=== PATIENT | female | born 1955 | race Caucasian/White ===

== ENCOUNTER → 2023-08-11 09:22 | Outpatient (CLI) | payer MEDICARE, OTHER, SELFPAY ==
--- NOTE | ~2023-08-11 | XR_ITS ---
Clinical Indication: Cough PA and lateral views of the chest: Comparison: 11/18/2012 Findings: The lungs are clear, without evidence of focal consolidation or pleural effusion. Cardiome diastinal silhouette is within normal limits. Bones and soft tissues are unremarkable. Impression: Normal chest. Reviewed, dictated and finalized at [facility]. 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
== END ==
PROVIDERS: PCP Clinical Nurse Specialist; Visit Provider Clinical Nurse Specialist
DX: R05.9 Cough, unspecified (principal); Z85.820 Personal history of malignant melanoma of skin
CPT/HCPCS: 71046

== ENCOUNTER 2023-11-04 06:51 | Day surgery (SDC) | payer MEDICARE, OTHER, SELFPAY ==
[2023-10-19 09:16] VITALS: BMI 24.6
[2023-10-19 10:41] VITALS: BMI 23.1
[2023-11-04 08:26] VITALS: BP 122/83; PULSE 68; RESP 16; TEMP 36.6; O2SAT 98; BMI 23.4
[2023-11-04] MEDS: LACTATED RINGERS 1,000 ML 150 ML IV CONT (08:40)
--- NOTE | 2023-11-04 08:58 | PM.HPGS ---
History of Present Illness History of Present Illness Consent: Risks, benefits, and alternatives have been discussed and questions answered. Patient agrees to proceed with procedure. Chief complaint: Screening neoplasm of colon Narrative: Jennifer Mistry is a 68 year old female dense for screening colonoscopy. Patient's current weight appetite and bowel movements are normal. Patient denies abdominal pain. She has had no bleeding. Previous colonoscopy 10 years ago was unremarkable. Family history is significant her son was recently identified as having colon polyps. Review of Systems Review of Systems: Review of systems is noncontributory. 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), right eye Macular hole, right eye repaired Melanoma Surgical History Surgical History H/O hemorrhoidectomy H/O shoulder replacement right H/O tubal ligation History of bunionectomy Family History Family History Father Hypertension Mother Patient's mother is in good health Father Diabetes mellitus Mother Heart disease Hypertension Sibling Breast cancer Social History Social History Social History: Caffeine- rarely Smoking status: Never smoker Second hand tobacco smoke exposure: No Smoking end date: 08/03/74 Alcohol intake: current Drinks per week: 2 Alcohol use details: wine Substance use: never Substance use type: does not use Do You Feel Safe in your Home?: Yes Lack of Transportation: No Lack of Food: Never True Current Housing: I Have Housing Concerned About Future Housing: No Difficulty Paying Gas/Electric Bills: No Difficulty Paying for Meds: No Currently Unemployed: No Education: Trade/Vocational Certificate Difficulty w/ Childcare or Family Care: No Living arrangements: with family Spiritual care concerns: No Meds Home Medications and Allergies Home Medications Medication Instructions Recorded Confirmed Type fluticasone propionate 50 1 spray intranasal Q12H #48 mL 09/02/23 11/04/23 Rx mcg/actuation nasal spray,suspension (Flonase Allergy Relief) Allergies Allergy/AdvReac Type Severity Reaction Status Date / Time amoxicillin Allergy Intermediate Unknown Verified 11/04/23 08:17 Penicillins Allergy Intermediate Rash Verified 11/04/23 08:17 Vital Signs Vital Signs - 24 hr 11/04/23 08:26 Temperature 97.8 F Pulse Rate 68 Respiratory Rate 16 Blood Pressure 122/83 Pulse Oximetry 98 Oxygen Delivery Room Air Exam Narrative: Physical exam reveals patient to be alert he exam is unremarkable. Patient is anicteric. Lungs are clear to auscultation and percussion. Is without murmur or extra sounds. Abdomen bowel sounds are present soft nontender with no organomegaly. Digital external rectal exam is normal. Assessment and Plan Assessment and plan (1) Screening for colon cancer: Code(s): Z12.11 - Encounter for screening for malignant neoplasm of colon Status: Acute Assessment and Plan: Patient presents for screening colonoscopy. Further recommendations may be given after endoscopy.
--- NOTE | 2023-11-04 09:30 | WPDANESEPPF ---
Anes - Initial Pre Proc Eval Procedure: Operation Date: 11/04/23 09:30 Proposed Procedures p Screening Colonoscopy - Joshua Davidson MD Date/Time: 11/04/23 09:30 Surgeon: Joshua Davidson MD Pre Op Diagnosis: Screening neoplasm of colon Patient Data Age: 68 Gender: F Height: 1.65 m Weight: 64 kg Last Vital Signs Temp 36.6 C 11/04/23 08:26 Pulse 68 11/04/23 08:26 Resp 16 11/04/23 08:26 BP 122/83 11/04/23 08:26 Pulse Ox 98 11/04/23 08:26 O2 Del Method Room Air 11/04/23 08:26 Allergies Allergy/AdvReac Type Severity Reaction Status Date / Time amoxicillin Allergy Intermediate Unknown Verified 11/04/23 08:17 Penicillins Allergy Intermediate Rash Verified 11/04/23 08:17 Home Medications Medication Instructions Recorded Confirmed Type fluticasone propionate 50 1 spray intranasal Q12H #48 mL 09/02/23 11/04/23 Rx mcg/actuation nasal spray,suspension (Flonase Allergy Relief) Patient hx anesthesia problems: none Family hx anesthesia problems: none Results Review: All pre-operative results and documents have been reviewed as part of the pre-operative evaluation. 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), right eye Macular hole, right eye repaired Melanoma Surgical History Surgical History H/O hemorrhoidectomy H/O shoulder replacement right H/O tubal ligation History of bunionectomy Family History Family History Father Hypertension Mother Patient's mother is in good health Father Diabetes mellitus Mother Heart disease Hypertension Sibling Breast cancer Social History Social History Social History: Caffeine- rarely Smoking status: Never smoker Second hand tobacco smoke exposure: No Smoking end date: 08/03/74 Alcohol intake: current Drinks per week: 2 Alcohol use details: wine Substance use: never Substance use type: does not use Do You Feel Safe in your Home?: Yes Lack of Transportation: No Lack of Food: Never True Current Housing: I Have Housing Concerned About Future Housing: No Difficulty Paying Gas/Electric Bills: No Difficulty Paying for Meds: No Currently Unemployed: No Education: Trade/Vocational Certificate Difficulty w/ Childcare or Family Care: No Living arrangements: with family Spiritual care concerns: No Anes - Eval Final PreProcedure Day of Procedure 11/04/23 09:30 Patient weight: normal Heart: regular rate and rhythm Lungs: clear to auscultation Airway: Mallampati scale class II Neurological: alert and oriented Last oral intake: >/= 8 hours ASA classification: II Emergent: no Anesthetic plan: proceed Anesthesia type and monitoring: general GIVS and standard monitoring Results Review: All pre-operative results and documents have been reviewed as part of the pre-operative evaluation. Informed Consent: The patient's anesthetic plan and its attendant risks and benefits were discussed with the patient/family/POA. Questions were solicited and answers provided to the satisfaction of the patient/family/POA.
[2023-11-04 09:57] VITALS: BP 116/74; PULSE 69; RESP 20; O2SAT 98
[2023-11-04 10:07] VITALS: BP 114/66; PULSE 68; RESP 18; O2SAT 100
[2023-11-04 10:17] VITALS: BP 146/66; PULSE 57; RESP 16; O2SAT 100
--- NOTE | 2023-11-04 10:38 | WPDANESPN ---
Anes - Prog Note Post-Op Date/Time: 11/04/23 10:38 Cardiovascular status: normal Respiratory status: normal Airway patency: baseline Mental status: baseline Post-Op hydration status: normal Vital Signs: Last Vital Signs Temp 36.6 C 11/04/23 08:26 Pulse 57 L 11/04/23 10:17 Resp 16 11/04/23 10:17 BP 146/66 H 11/04/23 10:17 Pulse Ox 100 11/04/23 10:17 O2 Del Method Room Air 11/04/23 10:17 Pain Score (VAS): 0 I/O: Intake & Output 11/03/23 11/04/23 11/04/23 23:59 07:59 15:59 Intake Total 500 Balance 500 Patient Feedback: Patient satisfied with anesthetic care.
== END 2023-11-04 10:59 | disposition home or self-care (01) ==
PROVIDERS: PCP Internal Medicine; Visit Provider Internal Medicine Gastroenterology
PROC: 0DJD8ZZ Inspection of Lower Intestinal Tract, Via Natural or Artificial Opening Endoscopic (ICD-10-PCS; CPT 45378; principal; 2023-11-04 09:30)
DX: Z12.11 Encounter for screening for malignant neoplasm of colon (principal)
CPT/HCPCS: G0121

== ENCOUNTER 2024-06-28 08:03 | Outpatient (CLI) | payer MEDICARE, OTHER, SELFPAY ==
--- NOTE | ~2024-06-28 | DEXA_ITS ---
Bone Density Report Name: NATI SALDIVAR Age: 68 Sex: Female Ethnicity: White Date of : 1955 Indication: postmenopausal; screening for osteoporosis; height loss; history of glucocorticoids; cancer; Referring Provider: LAI ECHOLS Study: Bone densitometry was performed. Exam Date: June 28, 2024 Accession number: [id number] Bone Density: Region BMD T-score Z-score Classification AP Spine(L1-L4) 0.992 -0.5 1.7 Normal Femoral Neck (Left) 0.671 -1.6 0.2 Osteopenia Total Hip (Left) 0.876 -0.5 1.0 Normal Femoral Neck (Right) 0.690 -1.4 0.4 Osteopenia Total Hip (Right) 0.878 -0.5 1.0 Normal Total Hip Mean 0.877 -0.5 1.0 Normal World Health Organization criteria for BMD impression classify patients as: Normal (T-score at or above -1.0), Osteopenia (T-score between -1.0 and -2.5), or Osteoporosis (T-score at or below -2.5). 10-year Fracture Risk(1): Major Osteoporotic Fracture 17% Hip Fracture 5.1% Reported Risk Factors: [place] (), Neck BMD=0.671, BMI=24.7, smoking, glucocorticoids (1) FRAX(R) Version 3.08. Fracture probability calculated for an untreated patient. Fracture probability may be lower if the patient has received treatment. Clinical Information Provided by Patient: Smokes Has taken Glucocorticoids Has used the following medications: Vitamin D, Calcium, Multivi Has the following medical conditions: Cancer Patient maximum height was 65 Menopause Age: 48 Drinks caffeinated beverages Onset of menses at age 10 Number of children 2 Impression: The patient has low bone mass, based on the Left Femoral Neck T-score. The patient has an estimated ten-year risk of hip fracture of 5.1% and an estimated ten-year risk of major fracture of 17%, based on the WHO FRAX algorithm. The patient has risk factors, including: smoking, history of glucocorticoid therapy. Discussion: BONE DENSITY IS LOW AT ONE OR MORE SKELETAL SITES. THE PATIENT'S BMD AND CLINICAL RISK FACTORS CONTRIBUTE TO THIS PATIENT'S INCREASED RISK OF FRACTURE. This patient's lowest T-score is low at one or more skeletal sites. It meets the World Health Organization's (WHO) criteria for ?low bone mass? (T-score between -1.0 and -2.5). The patient's 10-year risk of hip fracture as calculated by FRAX exceeds the threshold where pharmacological therapy is recommended by the National Osteoporosis Foundation (NOF). However, all treatment decisions require clinical judgment and consideration of individual patient factors, including patient preferences, comorbidities, previous drug use, risk factors not captured in the FRAX model (e.g., frailty, falls, vitamin D deficiency, increased bone turnover, interval significant decline in bone density) and possible under or overestimation of fracture risk by FRAX. The patient should follow a healthful lifestyle (good nutrition with adequate calcium and vitamin D, and appropriate weight-bearing exercise). Follow-Up: Consider a repeat BMD and Vertebral Fracture Assessment (VFA) exam in 2 years or sooner if medically necessary, to reassess this patient's status. Reported by: JOAQUIN on 06/28/2024 8:38:00 AM. Reviewed, dictated and finalized at location [facility]
== END 2024-06-28 08:04 | disposition home or self-care (01) ==
LOC: ANHIMG 08:04
PROVIDERS: Visit Provider Clinical Nurse Specialist
DX: Z78.0 Asymptomatic menopausal state (principal); M85.852 Other specified disorders of bone density and structure, left thigh; M85.851 Other specified disorders of bone density and structure, right thigh
CPT/HCPCS: 77080

== ENCOUNTER 2025-05-16 13:48 | Outpatient (CLI) | payer MEDICARE, SELFPAY ==
--- NOTE | 2025-05-16 14:49 | ECG_ITS ---
Test Date: 2025-05-16 15:01:20 Measurements Intervals [place] Rate: 60 P: 24 NM: 136 QRS: 13 QRSD: 94 T: 26 QT: 394 QTc: 396 Interpretive Statements SINUS RHYTHM DELAYED PRECORDIAL R/S TRANSITION CONSIDER INFERIOR INFARCT, AGE INDETERMINATE BASELINE ARTIFACT- I, II, III, AVR, AVL, AVF ABNORMAL ECG No previous ECG available for comparison Electronically Signed On 05-16-2025 16:54:00 CDT by Aric Pedersen D.O.
[2025-05-16 15:27] LABS: INR 1.0; Prothrombin Time 12.8 Seconds (11.1-14.7)
[2025-05-16 15:28] LABS: Partial Thromboplastin Time 26.2 Seconds (22.3-36.8)
[2025-05-16 15:37] LABS: Hematocrit 41.7 % (37.0-47.0); Hemoglobin 13.7 g/dL (12.0-15.0); Immature Granulocyte Percent A 0.3 % (0-0.5); Lymphocytes Absolute Auto 2.15 K/mm3 (0.9-3.2); Mean Corpuscular HGB Conc 32.9 g/dl (32-36); Mean Corpuscular Hemoglobin 28.8 pg (26-34); Mean Corpuscular Volume 87.8 fl (80-100); Nucleated Red Blood Cells Absolute Auto 0.000 K/mm3 (0.0-0.012); Nucleated Red Blood Cells Perc 0.0 % (0.0-0.2); Platelet Count Result 314 k/mm3 (150-375); Red Blood Count 4.75 M/mm3 (4.2-5.4); White Blood Count 7.2 K/mm3 (4.5-10.0)
[2025-05-16 15:40] LABS: Alanine Aminotransferase 22 U/L (6-35); Albumin Level 4.5 g/dL (3.5-5.1); Alkaline Phosphatase 67 U/L (38-126); Anion Gap 7 mmol/L (4-12); Aspartate Amino Transferase 33 U/L (14-36); Bilirubin,Total 0.4 mg/dL (0.2-1.3); Blood Urea Nitrogen 21 mg/dL (7-17); Calcium 9.9 mg/dL (8.4-10.2); Carbon Dioxide 28 mmol/L (22-30); Chloride 102 mmol/L (98-107); Estimated Glomerular Filt Rate > 60; Glucose 100 mg/dL (65-110); Potassium 4.2 mmol/L (3.4-5.0); Sodium 137 mmol/L (137-145); Total Protein 7.4 g/dL (6.3-8.2)
--- OUTSIDE RECORDS SUMMARY | 2025-05-16 15:50 | XMS_ITS | Clinical Summary ---
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
--- OUTSIDE RECORDS SUMMARY | 2025-05-16 15:51 | XMS_ITS | Encounter Summary ---
Author Organization [facility] Address [address] [place] [address] Care Team Providers Care Adult Neuropsychologist Name Role Phone Hank Loftonian Primary Care Provider Encounter Details Date Type Department Care Team (Late st Contact Info) Description 05/16/2025 Telephone [facility] Cardiology [address] [place] [address] Stormy Maddox MA Social History Tobacco Use Types Packs/Day Years Used Date Smoking Tobacco: Former Smokeless Tobacco: Never Alcohol Use Standard Drinks/Week Comments Not Currently 0 (1 standard drink = 0.6 oz pur e alcohol) AUDIT-C Answer Date Recorded Q1: How often do you have a drink containing alc ohol? 2-4 times a month 12/24/2022 Q2: How many drinks containi ng alcohol do you have on a typical day when you are drinking? 1 or 2 12/24/2022 Q3: How often do you have si x or more drinks on one occasion? Never 12/24/2022 Personal Safety Answer Date Recorded Have you ever been in or are you currently in a harmful physical or emotional relationship or is someone making you feel afraid or unsafe? 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 I called her back and told her it was not me that called her. documented in this encounter Plan of Treatment Not on file documented as of this encounter Visit Diagnoses Not on filedocumented in this encounter Care Teams Adult Neuropsychologist Relationship Specialty Start Date End Date Hank Lofton DO PCP - General 03/04/18 documented as of this encounter
--- OUTSIDE RECORDS SUMMARY | 2025-05-16 15:51 | XMS_ITS | Patient Health Record ---
Author Organization [facility] Address [address] [place], [place] [id number] Care Team Providers Care Acute Care Certified Nursing Assistant Name Role Phone BHAVANA Stein Unavailable [phone] Hank Lofton Unavailable Unavailable Reason For Referral No Information Medications Medication SIG (Take, Route, Frequency, Duration) Notes Start Date End Date Status diclofenac sodium 75 MG Delayed Release Oral Tablet ORAL diclofenac sodium 75 MG Delayed Release Oral TabletOriginal Medicationdiclofenac sodium 75 MG Delayed Release Oral Tablet *Reorder from [address] [employer] for eRx and Interaction Alerts* 03/26/2016 Active Medrol Dosepak ORAL Medrol DosepakOr iginal MedicationMedrol Dosepak *Reorder from [facility] for eRx and Interaction Alerts* 11/17/2016 Active Plan Of Treatment No Information Insurance Providers Payer Name Payer Address Payer Phone Subscriber Number Group Number Insured Name Patient Relationship to Insured Coverage Start Date Coverage End Date Medicare Part B [facility] [place] [address] [facility] [place] [id number] NATI SALDIVAR Self - patient is the insured [facility] [employer] [address] [place] [phone] [id number] NATI SALDIVAR Self - patient is the insured
--- OUTSIDE RECORDS SUMMARY | 2025-05-16 15:51 | XMS_ITS | Clinical Summary ---
Author Organization [facility] Address [address] [place] [address] Care Team Providers Care Phone Technician Name Role Phone LaynedineshHank tai Lenny Primary Care Provider Allergies Active Allergy Reactions Criticality Noted Date Comments Penicillins Rash Medium 08/28/2011 Medications MAGNESIUM ORAL Take 1 tablet by mouth nightly Active ascorbic acid/collagen hydr (COLLAGEN SKIN RENEWAL ORAL) Take 1 tablet by mouth nightly Active CALCIUM ORAL Take 1 tablet by mouth every morning Active acetaminophen 500 mg capsuleIndicati ons:Pain Take 2 capsules (1,000 mg total) by mouth every 6 (six) hours 120 tablet 3 Active clindamycin (CLEOCIN) 300 mg capsuleIndicati ons:Prophylaxis , Surgical TAKE TWO CAPSULES ONE HOUR PRIOR TO DENTAL PROCEDURE 6 capsule 1 3 Active Active Problems Problem Noted Date Diagnosed Date Rotator cuff tear, right 01/15/2023 Complete tear of right rotator cuff 11/06/2022 Overview (11/06/2022): Added automatically from request for surgery [id number] Epistaxis 08/28/2011 Encounters Date Type Department Care Team Description 05/16/2025 Telephone [facility] Cardiology [address] [place] [address] Stormy Maddox MA from Last 3 Months Surgical History Surgery Date Site/Laterality Comments FLUORO GUIDED INJECTION SHOULDER RIGHT 08/25/2022 [facility] Medical History Medical History Date Comments Peptic ulceration Cancer (HCC) Family History Medical History Relation Name Comments Anesthesia problems Neg Hx Social History Tobacco Use Types Packs/Day Years [...] on file Legal Sex Female 3:44 AM STRIKER OFF Gender Identity Female 04/27/2024 11:14 AM CDT Sexual Orientation Not on file Obstetrics History Last Filed Vital Signs Vital Sign Reading Time Taken Comments Blood Pressure 127/69 01/16/2023 8:14 AM CDT Pulse 81 01/16/2023 8:14 AM CDT Temperature 36.8 C (98.2 F) 01/16/2023 3:54 AM CDT Respiratory Rate 16 01/16/2023 8:14 AM CDT Oxygen Saturation 96% 01/16/2023 8:14 AM CDT Inhaled Oxygen Concentration - - Weight 65.8 kg (145 lb) 05/17/2024 4:07 PM CDT Height 165.1 cm (5' 5) 05/17/2024 4:07 PM CDT Body Mass Index 24.13 05/17/2024 4:07 PM CDT Plan of Treatment Health Maintenance Due Date Last Done Comments Colon Cancer Screening-Colonoscopy 1955 Depression Screening 1955 Hepatitis C Screening 1955 Osteoporosis Screening-Bone Density Scan 1955 DTaP/Tdap/Td Vaccine (1 - Tdap) 1964 Hepatitis B Screening 1971 Pneumococcal vaccine 65+ (1 of 1 - PCV) 2003 Zoster Vaccine (1 of 2) 2003 Well Visit 65+ 2018 Fall Risk Assessment 01/17/2024 01/16/2023 Covid-19 Vaccine (2024-2 6 season) 2025 10/12/2020, 09/21/2020 Influenza Vaccine (#1) 2025 05/29/2021 Breast Cancer Screening-Mammogram 09/28/2025 09/28/2024, 09/22/2023, 10/08/2022, Additional history exists Medical Devices Implanted Type Area Balance Recesser Device Identifier Shelf Expiration Date Model / Serial / Lot [employer] Tornier Aequalis Perform 25mm Lateralize Augment Reverse Shoulder [id number] - [id number] - [id number] Implanted:Qty: 1 on 01/15/2023 by Justino Bearden MD at [facility] Right: Shoulder [employer] 11/28/2027 [id number] / [id number] / [employer] Tornier Aequalis Perform 15mm Press Fit Long Post Shoulder [id number] - [id number] - [id number] Implanted:Qty: 1 on 01/15/2023 by Justino Bearden MD at [facility] Right: Shoulder [employer] [id number] / [id number] / [employer] Aequalis Perform Reversed 5mm 14mm Peripheral Glenoid Screw [id number] - [id number] Implanted:Qty: 1 on 01/15/2023 by Justino Bearden MD at [facility] Right: Shoulder [employer] [id number] / / [employer] Aequalis Perform Reversed 5mm 18mm Peripheral Glenoid Screw [id number] - [id number] Implanted:Qty: 1 on 01/15/2023 by Justino Bearden MD at [facility] Right: Shoulder [employer] [id number] / / [employer] Aequalis Perform Reversed 5mm 42mm Peripheral Glenoid Screw [id number] - [id number] Implanted:Qty: 1 on 01/15/2023 by Justino Bearden MD at [facility] Right: Shoulder [employer] [id number] / / [employer] Aequalis Perform Reversed 5mm 30mm Peripheral Glenoid Screw [id number] - [id number] Implanted:Qty: 1 on 01/15/2023 by Justino Bearden MD at [facility] Right: Shoulder [employer] [id number] / / [employer] Tornier Aequalis Perform 36mm Reverse Shoulder Standard Sphere [id number] - [id number] - [id number] Implanted:Qty: 1 on 01/15/2023 by Justino Bearden MD at [facility] Right: Shoulder [employer] 11/01/2027 [id number] / [id number] / [employer] Insert Perform 10 Deg Ret [id number] - [id number] - [id number] Implanted:Qty: 1 on 01/15/2023 by Justino Bearden MD at [facility] Right: Shoulder [employer] [id number] 03/14/2025 [id number] / [id number] / [employer] Stem Perform Sz 2 Plus Humeral Long [id number] - [id number] - [id number] Implanted:Qty: 1 on 01/15/2023 by Justino Bearden MD at [facility] Right: Shoulder [employer] 10/30/2027 [id number] / [id number] / Procedures Procedure Name Priority Date/Time Associated Diagnosis Comments SCREENING MAMMOGRAM BILATERAL W GOPI Schedule Routine, Read Routine (OP Routine) 09/28/2024 1:41 PM STRIKER OFF Screening mammogram, encounter for from Last 3 Months or Most Recently Relevant to Health Maintenance Results * Screening Mammogram Bilateral W Gopi (09/28/2024 1:41 PM STRIKER OFF) Anatomical Region Laterality Modality Breast Bilateral Mammography Narrative 09/29/2024 11:54 AM STRIKER OFF Mammogram Technique: Bilateral Digital Breast Tomosynthesis, Bilateral C-view 2D Screening mammogram. Views obtained: bilateral craniocaudal and bilateral mediolateral oblique. Computer Aided Detection was performed. Mammogram Findings: The present examination has been compared to prior imaging studies performed at [facility] on 07/10/2021, 10/08/2022 and 09/22/2023. The breasts are almost entirely fatty. There is no suspicious abnormality in either breast. Impression: There is no mammographic evidence of malignancy. Annual screening mammography is recommended. OVERALL FINAL ASSESSMENT: BI-RADS CATEGORY 1: Negative. Procedure Note Diamond Samson MD - 09/29/2024 Mammogram Technique: Bilateral Digital Breast Tomosynthesis, Bilateral C-view 2D Screening mammogram. Views obtained: bilateral craniocaudal and bilateral mediolateral oblique. Computer Aided Detection was performed. Mammogram Findings: The present examination has been compared to prior imaging studies performed at [facility] on 07/10/2021, 10/08/2022 and 09/22/2023. The breasts are almost entirely fatty. There is no suspicious abnormality in either breast. Impression: There is no mammographic evidence of malignancy. Annual screening mammography is recommended. OVERALL FINAL ASSESSMENT: BI-RADS CATEGORY 1: Negative. us Self Screening Mammogram IMG MAMMO PROCEDURES Fi nal Result from Last 3 Months or Most Recently Relevant to Health Maintenance Insurance [facility] [place] [address] MEDICARE [facility] Address: [address] [address] [place] [address] [facility] MEDIC[facility] ADVANTAGE Advance Directives For more information, please contact: [phone] Documents on File Type Date Recorded Patient Family Development Specialist Expl anation ADVANCE DIRECTIVE 01/15/2023 6:53 AM Power of Manufacturing Intern-Medical ADVANCE DIRECTIVE 01/15/2023 6:53 AM Cheyanne Bourne * Full Code (Latest Code Status on File) Date Activated Date Inactivated Comments 01/15/2023 12:31 PM 01/16/2023 3:16 PM Care Teams Phone Technician Relationship Specialty Start Date End Date Hank Lofton DO PCP - General 03/04/18
--- OUTSIDE RECORDS SUMMARY | 2025-05-16 15:51 | XMS_ITS | Encounter Summary ---
Author Organization [facility] Address [address] [place] [address] Care Team Providers Care Drying Machine Operator Name Role Phone Unavailable Primary Care Provider Unavailabl e Encounter Details Date Type Department Care Team (Late st Contact Info) Description 08/25/2007 Outpatient Historical [facility] [place] [id number] [place] [address] Social History Tobacco Use Types Packs/Day Years Used Date Smoking Tobacco: Never Assessed Comments Unknown Sex and Gender Information Value Date Recorded Sex Assigned at Not on file Legal Sex Female 5:30 AM HOT TAMALE MAN Gender Identity Not on file Sexual Orientation Not on file documented as of this encounter Plan of Treatment Not on file documented as of this encounter Procedures Procedure Name Priority Date/Time Associated Diagnosis Comments POC , URINE Routine 09/06/2007 8:15 AM HOT TAMALE MAN HEMOGLOBIN AND HEMATOCRIT Routine 08/31/2007 1:36 PM HOT TAMALE MAN documented in this encounter Results * POC , URINE (09/06/2007 8:15 AM HOT TAMALE MAN) , URINE POC Negative Negative INTERFACE SYSTEM 09/06/2007 8:15 AM HOT TAMALE MAN Narrative INTERFACE SYSTEM - 09/06/2007 8:15 AM HOT TAMALE MAN Ordered by an unspecified provider. us Historical Provider POINT OF CARE TESTING Final Result INTERFACE SYSTEM Refer to clinic/hospital department * HEMOGLOBIN AND HEMATOCRIT (08/31/2007 1:36 PM HOT TAMALE MAN) HEMOGLOBIN 13.5 11.8 - 14.8 g/dL INTERFACE SYSTEM HEMATOCRIT 41.4 35.5 - 44.0 % INTERFACE SYSTEM 08/31/2007 1:36 PM HOT TAMALE MAN us Barbi Kendall MD HEMATOLOGY ORDERABLES Edited INTERFACE SYSTEM Refer to clinic/hospital department documented in this encounter Visit Diagnoses Not on filedocumented in this encounter
== END 2025-05-16 13:49 | disposition home or self-care (01) ==
LOC: ANHSURGERY 13:52
PROVIDERS: PCP Internal Medicine; Visit Provider Urology
DX: Z01.818 Encounter for other preprocedural examination (principal); N81.4 Uterovaginal prolapse, unspecified; R94.31 Abnormal electrocardiogram [ECG] [EKG]
CPT/HCPCS: 36415; 80053; 85025; 85610; 85730; 86850; 86900; 86901; 93005

== ENCOUNTER 2025-05-29 01:30 | Day surgery (SDC) | payer MEDICARE, SELFPAY ==
[2025-05-16 14:08] VITALS: BP 119/64; PULSE 60; RESP 16; TEMP 37.3; O2SAT 97; BMI 25.3
--- NOTE | 2025-05-16 14:31 | PC.NURSE ---
[facility] has started construction of its new state of the art ER which will open Spring 2026. With this, we anticipate parking may be a challenge for some our surgical patients and families. Parking spaces are limited but are available for all Surgical, obstetrics, and ER patients sharing this lot. If you arrive and find you are having a hard time finding a parking space, please note that we understand the challenges, please drive around the hospital and park near Hospital Entrance 1. When you enter this entrance, you can ask a volunteer to direct or take you back to the surgical waiting area to check in. We appreciate everyone?s understanding of these expected challenges while we build for your future. Report to the Outpatient Waiting Room, entrance under the green pavilion located off [address], at time __6:00AM___ on date __05/29/25___. Planned Procedure Time: __7:30AM____.? Time changes happen often and if your time is changed the preop area will call you the afternoon before. - You and your visitor will be asked to self-screen and do not enter if you have any COVID symptoms. Please call surgeon if you need to reschedule. - A mask is optional within the hospital at this time. Patients may have clear liquids (water, carbonated beverages, clear teas, apple juice) until 3 hours prior to surgery (4:30AM) with a maximum of 20 ounces. - No food from midnight until time of surgery and no smoking, or chewing tobacco (or any form of nicotine). No chewing gum, candy or mints. Take only the following medications with a SIP of water on the morning of surgery: ___NONE DO NOT STOP ANY OF YOUR OTHER PRESCRIPTION MEDICATIONS PRIOR TO SURGERY EXCEPT THE FOLLOWING Medications to discontinue per physician ___HOLD ALL VITAMINS/SUPPLEMENTS 7 DAYS PRE-OP PER DR NOEL Date to take last dose 05/21/25 Please no make-up, nail maori, hairspray, perfume, deodorant, or body powder the day of surgery.? No jewelry (including any body piercings) or valuables the day of surgery, leave them at home.? Please take a shower or bath the night before, or the morning of, surgery with an antibacterial soap.? Wear comfortable, loose fitting clothing.? - Jewelry must be removed prior to entering the operating room.? Rings and piercings that are not removed may be cut off. - The hospital will not accept responsibility for valuables.? - Please leave all valuables, including medications, at home the day of surgery. If you are going home after surgery, a licensed otr hazmat company driver must drive you home.? - NO public transportation without another adult if you receive anesthesia. - We recommend that an adult stay with you for 24 hours following discharge. - We also recommend that you do not drive, make important decision, drink alcoholic beverages, or take any drugs that were not prescribed by your health care provider for at least 24 hours after your discharge time. Follow any additional instructions given to you from your surgeon. Telephone instructions given to ____PATIENT and asked if any additional questions and then verbalized understanding. Patient advised to call surgeon office or pre surgery nurse liaison [phone] if any additional questions.
--- NOTE | 2025-05-27 09:45 | PM.IMHP ---
H&P: HPI History of Present Illness Date/Time: 05/27/25 09:45 69-year-old female presents for complaints of vaginal pressure fullness over the past number of months. 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 Also at times feels and visualize is tissue protruding from the vagina. She has seen Dr. Archer and is scheduled for sacral colpopexy, also needs supracervical hysterectomy with bilateral salpingo oophorectomy. Gives no history of any abnormal Pap smears or gynecologic issues, ultrasound shows 2 small fibroids but no other significant pathology. 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), right eye Melanoma Surgical History Surgical History H/O shoulder replacement right History of bunionectomy H/O hemorrhoidectomy H/O tubal ligation Family History Family History Father Hypertension Mother Patient's mother is in good health Father Diabetes mellitus Mother Heart disease Hypertension Sibling Breast cancer Social History Social History Social History: Caffeine- rarely Smoking packs per day: 0.5 Smoking cigarettes per day: 10.0 Years smoked: 3 Smoking pack-years: 1.50 Smoking status: Former smoker Tobacco type: cigarettes Second hand tobacco smoke exposure: No Smoking end date: 01/31/77 Alcohol intake: current Drinks per week: 2 Alcohol use details: wine Substance use: never Substance use type: does not use Do You Feel Safe in your Home?: Yes Lack of Transportation: No Lack of Food: Never True Current Housing: I Have Housing Concerned About Future Housing: No Difficulty Paying Gas/Electric Bills: No Difficulty Paying for Meds: No Currently Unemployed: No Education: Trade/Vocational Certificate Difficulty w/ Childcare or Family Care: No Living arrangements: with family Additional [facility] Occupation/Education: occupation 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 Gender identity (if verbalized by the patient): Female Sexual Orientation (if Verbalized by the Patient): Straight or Heterosexual Spiritual care concerns: No Meds Home Medications and Allergies Home Medications ?Medication ?Instructions ?Recorded ?Confirmed ?Type acetaminophen 500 mg tablet 1,000 mg PO Q6H PRN pain 05/16/25 05/19/25 History (Acetaminophen Extra Strength) calcium 167 mg-vitamin D3 1.67 1 cap PO HS 05/16/25 05/19/25 History mcg-magnesium 83 mg capsule calcium 600 mg (as carbonate)-vit 1 tablet PO DAILY 05/16/25 05/19/25 History D3 20 mcg (800 unit) chewable tablet (Caltrate plus D) kevin (Zingiber officinalis) 500 500 mg PO DAILY 05/16/25 05/19/25 History mg capsule magnesium glycinate 500 mg PO HS 05/16/25 05/19/25 History multivitamin (Daily Multi-Vitamin 1 tablet PO DAILY 05/16/25 05/19/25 History tablet) omega 8-jcf-ubl-fish oil 1,000 mg 1 cap PO DAILY 05/16/25 05/19/25 History (120 mg-180 mg) capsule (Fish Oil) omeprazole 20 mg capsule,delayed 20 mg PO DAILY PRN indigestion 05/16/25 05/19/25 History release turmeric 400 mg capsule 400 mg PO DAILY 05/16/25 05/19/25 History Allergies Allergy/AdvReac Type Severity Reaction Status Date / Time amoxicillin Allergy Intermediate Rash Verified 05/19/25 11:20 Penicillins Allergy Intermediate Rash Verified 05/19/25 11:20 Exam Resp: Effort & Inspection: normal respiratory effort Auscultation: clear to auscultation bilaterally Cardio: Rate: regular rate Rhythm: regular rhythm GI: Inspection: normal to inspection Auscultation: normal bowel sounds : External Female Exam: normal external appearance Speculum Exam - Vagina: normal appearance of the vagina and vagina atrophic Speculum Exam - Cervix: normal appearance of the cervix Bimanual exam- vagina & uterus: normal bimanual exam Bimanual Exam- Adnexa, other: normal adnexae Other: uterus does prolapse to the introitus with cystocele noted as well. No significant rectocele appreciated on exam Assessment and Plan Assessment and plan (1) Cystocele with uterine prolapse: Code(s): N81.4 - Uterovaginal prolapse, unspecified Status: Acute Assessment and Plan: will proceed with supracervical hysterectomy with bilateral salpingo oophorectomy. Dr. Archer to proceed after we have completed our portion of the procedure.
--- NOTE | 2025-05-28 04:34 | PM.IMHP ---
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), right eye Melanoma Surgical History Surgical History H/O shoulder replacement right History of bunionectomy H/O hemorrhoidectomy H/O tubal ligation Family History Family History Father Hypertension Mother Patient's mother is in good health Father Diabetes mellitus Mother Heart disease Hypertension Sibling Breast cancer Social History Social History Social History: Caffeine- rarely Smoking packs per day: 0.5 Smoking cigarettes per day: 10.0 Years smoked: 3 Smoking pack-years: 1.50 Smoking status: Former smoker Tobacco type: cigarettes Second hand tobacco smoke exposure: No Smoking end date: 01/31/77 Alcohol intake: current Drinks per week: 2 Alcohol use details: wine Substance use: never Substance use type: does not use Do You Feel Safe in your Home?: Yes Lack of Transportation: No Lack of Food: Never True Current Housing: I Have Housing Concerned About Future Housing: No Difficulty Paying Gas/Electric Bills: No Difficulty Paying for Meds: No Currently Unemployed: No Education: Trade/Vocational Certificate Difficulty w/ Childcare or Family Care: No Living arrangements: with family Additional [facility] Occupation/Education: occupation 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 [employer] Gender identity (if verbalized by the patient): Female Sexual Orientation (if Verbalized by the Patient): Straight or Heterosexual Spiritual care concerns: No Meds Home Medications and Allergies Home Medications ?Medication ?Instructions ?Recorded ?Confirmed ?Type acetaminophen 500 mg tablet 1,000 mg PO Q6H PRN pain 05/16/25 05/19/25 History (Acetaminophen Extra Strength) calcium 167 mg-vitamin D3 1.67 1 cap PO HS 05/16/25 05/19/25 History mcg-magnesium 83 mg capsule calcium 600 mg (as carbonate)-vit 1 tablet PO DAILY 05/16/25 05/19/25 History D3 20 mcg (800 unit) chewable tablet (Caltrate plus D) kevin (Zingiber officinalis) 500 500 mg PO DAILY 05/16/25 05/19/25 History mg capsule magnesium glycinate 500 mg PO HS 05/16/25 05/19/25 History multivitamin (Daily Multi-Vitamin 1 tablet PO DAILY 05/16/25 05/19/25 History tablet) omega 0-yhp-gvh-fish oil 1,000 mg 1 cap PO DAILY 05/16/25 05/19/25 History (120 mg-180 mg) capsule (Fish Oil) omeprazole 20 mg capsule,delayed 20 mg PO DAILY PRN indigestion 05/16/25 05/19/25 History release turmeric 400 mg capsule 400 mg PO DAILY 05/16/25 05/19/25 History Allergies Allergy/AdvReac Type Severity Reaction Status Date / Time amoxicillin Allergy Intermediate Rash Verified 05/19/25 11:20 Penicillins Allergy Intermediate Rash Verified 05/19/25 11:20 Exam Narrative: anterior wall +2 apex -2 Assessment and Plan Assessment and plan (1) Cystocele with uterine descensus: Code(s): N81.4 - Uterovaginal prolapse, unspecified Status: Acute Assessment and Plan: robotic sacral colpopexy
[2025-05-29] VITALS (10 sets, daily range): BP systolic 109–137; BP diastolic 51–81; PULSE 58–71; RESP 14–20; TEMP 36.4–37.1; O2SAT 98–100
[2025-05-29] MEDS: KETOROLAC 15 MG/ML VIAL (*BKC) IV PUSH ×2 (07:00→14:57)
[2025-05-29] MEDS: ACETAMINOPHEN 500 MG TABLET 1000 MG PO (07:00)
[2025-05-29 07:08] LABS: Hematocrit 39.9 % (37.0-47.0); Hemoglobin 13.3 g/dL (12.0-15.0); Mean Corpuscular HGB Conc 33.3 g/dl (32-36); Mean Corpuscular Hemoglobin 29.1 pg (26-34); Mean Corpuscular Volume 87.3 fl (80-100); Platelet Count Result 272 k/mm3 (150-375); Red Blood Count 4.57 M/mm3 (4.2-5.4); White Blood Count 4.4 K/mm3 (4.5-10.0)
--- NOTE | 2025-05-29 07:09 | WPDANESEPPF ---
Anes - Initial Pre Proc Eval Procedure: Operation Date: 05/29/25 07:30 Proposed Procedures p Robotic Sacrocolpopexy, Urethral Sling - Adeel Archer MD s Robotic Assisted Laparoscopic Supracervical Hysterectomy with Bilateral Salpingo-oophorectomy - Ehsan Berrios MD Date/Time: 05/29/25 07:09 Surgeon: Adeel Archer MD Pre Op Diagnosis: uterine prolapse, stress incont, cystocele Patient Data Age: 69 Gender: F Height: 1.63 m Weight: 67 kg Last Vital Signs Temp 37.3 C 05/16/25 14:08 Pulse 60 05/16/25 14:08 Resp 16 05/16/25 14:08 BP 119/64 05/16/25 14:08 Pulse Ox 97 05/16/25 14:08 O2 Del Method Room Air 05/16/25 14:08 Allergies Allergy/AdvReac Type Severity Reaction Status Date / Time amoxicillin Allergy Intermediate Rash Verified 05/19/25 11:20 Penicillins Allergy Intermediate Rash Verified 05/19/25 11:20 Home Medications ?Medication ?Instructions ?Recorded ?Confirmed ?Type acetaminophen 500 mg tablet 1,000 mg PO Q6H PRN pain 05/16/25 05/19/25 History (Acetaminophen Extra Strength) calcium 167 mg-vitamin D3 1.67 1 cap PO HS 05/16/25 05/19/25 History mcg-magnesium 83 mg capsule calcium 600 mg (as carbonate)-vit 1 tablet PO DAILY 05/16/25 05/19/25 History D3 20 mcg (800 unit) chewable tablet (Caltrate plus D) kevin (Zingiber officinalis) 500 500 mg PO DAILY 05/16/25 05/19/25 History mg capsule magnesium glycinate 500 mg PO HS 05/16/25 05/19/25 History multivitamin (Daily Multi-Vitamin 1 tablet PO DAILY 05/16/25 05/19/25 History tablet) omega 7-pbn-pfi-fish oil 1,000 mg 1 cap PO DAILY 05/16/25 05/19/25 History (120 mg-180 mg) capsule (Fish Oil) omeprazole 20 mg capsule,delayed 20 mg PO DAILY PRN indigestion 05/16/25 05/19/25 History release turmeric 400 mg capsule 400 mg PO DAILY 05/16/25 05/19/25 History Laboratory Tests 05/29/25 06:48 WBC Pending RBC Pending Hgb Pending Hct Pending MCV Pending MCH Pending MCHC Pending RDW Pending Plt Count Pending MPV Pending Patient hx anesthesia problems: none Family hx anesthesia problems: none Results Review: All pre-operative results and documents have been reviewed as part of the pre-operative evaluation. 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), right eye Melanoma Surgical History Surgical History H/O shoulder replacement right History of bunionectomy H/O hemorrhoidectomy H/O tubal ligation Family History Family History Father Hypertension Mother Patient's mother is in good health Father Diabetes mellitus Mother Heart disease Hypertension Sibling Breast cancer Social History Social History Social History: Caffeine- rarely Smoking packs per day: 0.5 Smoking cigarettes per day: 10.0 Years smoked: 3 Smoking pack-years: 1.50 Smoking status: Former smoker Tobacco type: cigarettes Second hand tobacco smoke exposure: No Smoking end date: 08/03/74 Alcohol intake: current Drinks per week: 2 Alcohol use details: wine Substance use: never Substance use type: does not use Do You Feel Safe in your Home?: Yes Lack of Transportation: No Lack of Food: Never True Current Housing: I Have Housing Concerned About Future Housing: No Difficulty Paying Gas/Electric Bills: No Difficulty Paying for Meds: No Currently Unemployed: No Education: Trade/Vocational Certificate Difficulty w/ Childcare or Family Care: No Living arrangements: with family Additional living arrangements comments: [facility] Occupation/Education: occupation 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 Gender identity (if verbalized by the patient): Female Sexual Orientation (if Verbalized by the Patient): Straight or Heterosexual Spiritual care concerns: No Anes - Eval Final PreProcedure Day of Procedure 05/29/25 07:09 Patient weight: normal Heart: regular rate and rhythm Lungs: clear to auscultation Airway: Mallampati scale class II Neurological: alert and oriented Last oral intake: >/= 8 hours ASA classification: II Emergent: no Anesthetic plan: proceed Anesthesia type and monitoring: general ETT and standard monitoring Results Review: All pre-operative results and documents have been reviewed as part of the pre-operative evaluation. Informed Consent: The patient's anesthetic plan and its attendant risks and benefits were discussed with the patient/family/POA. Questions were solicited and answers provided to the satisfaction of the patient/family/POA.
--- NOTE | 2025-05-29 07:17 | WPDHPUPDATE1 ---
History and Physical Update Update Date/Time: 05/29/25 07:17 History and Physical has been reviewed, including an updated exam of the patient. There are NO changes in the patient's condition. Risks, benefits, and alternatives have been discussed and questions answered. Patient agrees to proceed with procedure.
--- NOTE | 2025-05-29 07:22 | WPDHPUPDATE1 ---
History and Physical Update Update Date/Time: 05/29/25 07:22 History and Physical has been reviewed, including an updated exam of the patient. There are NO changes in the patient's condition. Risks, benefits, and alternatives have been discussed and questions answered. Patient agrees to proceed with procedure.
[2025-05-29] MEDS: LACTATED RINGERS 1,000 ML 30 ML IV CONT ×2 (07:23→09:53)
[2025-05-29] MEDS: SCOPOLAMINE 1 MG PATCH 1 PATCH TRANSDERM (07:25)
[2025-05-29] MEDS: metroNIDAZOLE 500 MG/ISO 100ML 500 MG/100 ML BAG 100 MG IVPB ×3 (07:32→23:23)
[2025-05-29] MEDS: ceFAZolin 2 GM in SODIUM CHLORIDE 0.9% IV 50 ML 100 ML IVPB (07:39)
[2025-05-29] MEDS: BUPIVACAINE/EPINEPHRINE 0.5% 50 ML VIAL 20 ML INFILTRATE (08:22)
--- NOTE | 2025-05-29 08:30 | W.PM.PROC2 ---
Procedure Note - Detailed Date of Procedure 05/29/25 Pre-op Diagnosis uterine prolapse, stress incont, cystocele Post-op Diagnosis Same Procedure Performed Robotic assisted laparoscopic supracervical hysterectomy with bilateral salpingo oophorectomy Surgeon Ehsan Berrios MD Anesthesia General Findings Uterus multiple fibroids, tubes with segments removed previously with distal segments present. Ovaries without abnormality. Description of Procedure Patient was prepped and draped in usual manner for this procedure and trocars were placed Dr. Archer. Pelvis was evaluated with ovaries without abnormality, tubal segments present, uterus with multiple fibroids. The infundibulopelvic ligament cauterized and cut bilaterally and the ovaries and distal tube segments removed without difficulty. Round ligament was then cauterized and cut bladder flap was developed without difficulty and posterior leaf the broad ligament was also incised to skeletonize the uterine vessels. These were cauterized and cut and once the blood flow to the uterus was desiccated, cervix was incised without difficulty and minimal bleeding. Uterus was then placed into an Endo-Catch bag for removal later in the case. At this point Dr. Archer entered the case. Estimated Blood Loss 10 Drains No Packing No Pathology Yes Complications No immediate complications Condition Stable Disposition PACU [facility] Billing Surgery - Charge Forward: Surgery Billing
--- NOTE | 2025-05-29 08:48 | S_PTH ---
PATIENT: Jennifer Mistry LOC: [facility] U#:[id number] AGE/SX: 69/F ROOM: RE05/29/[address]: Adeel Archer MD : 1955 BED: DIS: 05/30/2025 SPEC #: [id number] RECD: 05/29/25 11:06 STATUS: YEISON REQ #: [id number] JEANNIE: 05/29/25 08:[address]: Ehsan Berrios DEPT: [facility] Surgical RECD BY: Maritza Boss ENTERED: 05/29/25 11:07 SP TYPE: Surgical OTHR DR: MD Hank Nguyen DO Tissues: A - Uterus Procedures: Hematoxylin and Eosin Stain Gross and Microscopic Level 5
--- NOTE | 2025-05-29 09:59 | P.OP_ITS ---
Procedure Note - Detailed Date of Procedure 05/29/25 Pre-op Diagnosis uterine prolapse Post-op Diagnosis Same Procedure Performed Robotic assisted laparoscopic sacral colpopexy Cystoscopy Surgeon Adeel Archer MD Anesthesia General Indications A woman with uterine prolapse and no stress incontinence by history and urodynamic. She desires surgical correction. She is here for the above. She understands risks of bleeding, infection, diskitis, damage to surrounding organs, bowel injury, bowel obstruction, mesh related complications including exposure and extrusion, postoperative voiding dysfunction including incontinence and retention, need for ancillary procedures, dyspareunia, recurrence of prolapse, and other perioperative intraoperative postoperative complications. She agrees to proceed. Findings See below Description of Procedure She was correctly identified. Informed consent obtained. She from the operating room. She was given general anesthesia. She was given appropriate perioperative antibiotics. She was placed a low lithotomy position. Pressure points were padded. A time-out performed. I marked out the skin 3 fingerbreadths cephalad to the umbilicus. I anesthetized the skin. I incised the skin. I dissected down to the fascia. I grasped the fascia with Claudine clamps. I entered the fascia sharply in a Wayne type technique. I placed sutures for later fascial closure. I placed a midline trocar. I examined the abdomen. There is no sign of any injury. Under direct vision I placed 2 additional trocars in the right upper quadrant and 2 additional trocars the left upper quadrant. She was placed in steep Trendelenburg. The robot was docked. Her cyber defense forensics analyst completed their portion of the procedure. Please see that operative report for details. I then sat at the console. The Sizer in the vagina created plane on the anterior and posterior vaginal wall. I took great care not to injure the vagina, bladder, or rectum. I introduced the mesh into the abdomen. I sewed the anterior leaflet of mesh on the anterior vaginal wall. I sewed the posterior leaflet of mesh on the posterior vaginal wall. This was done with several sutures of 2 0 [place]. I reflected the colon laterally. I opened the posterior peritoneum over the sacral promontory. I carried this into the cul-de-sac. I freed up the edges for later retroperitonealization. I located the anterior longitudinal ligament the sacrum. I cleaned off all fatty tissues. I then tensioned my mesh appropriately. I did a vaginal exam the bedside. I assured prolapse reduction without undue tension. I then sewed the proximal leaflet of mesh onto the anterior longitudinal ligament of the sacrum with 3 sutures of 2 0 [place]. I then used a 2 0 Monocryl to completely and meticulously retroperitonealized all mesh. I allowed the colon to go back to its normal anatomic location. There is no sign of any impingement. The specimen was then removed. All ports removed. Fascia was tied down. One additional suture was used to fully close the fascia. Skin was closed with Monocryl and surgical glue. I then performed cystoscopy. There was no tumors or surgical artifact. Both ureters were seen to excrete clear yellow urine. There is no surgical artifact in the bladder or urethra. I cut the excess sling material. Close incision with glue. She was awakened and transferred to PACU in stable condition. Implants Sacral colpopexy mesh Estimated Blood Loss 10 Packing No Pathology None sent Complications No immediate complications Condition Stable Disposition PACU
[2025-05-29] MEDS: fentaNYL CITRATE INJ (*CRX) 100 MCG/2 ML VIAL 25 MCG IV PUSH (10:15)
--- NOTE | 2025-05-29 11:05 | PC.NURSE ---
This patient, Jennifer Mistry, was received from PACU on 05/29/25 at 1105. Patient/family oriented to unit policies and routines.
[2025-05-29] MEDS: HYDROcodone/acetaminophen (*CRX) 5-325 MG TABLET 1 TAB PO (11:27)
[2025-05-29] MEDS: KCL 20 MEQ/D5/0.45% SOD CHL 1,000 ML 100 ML IV CONT (11:29)
[2025-05-29] MEDS: ACETAMINOPHEN 325 MG TABLET 650 MG PO ×2 (12:24→18:33)
[2025-05-29] MEDS: DOCUSATE SODIUM 100 MG CAPSULE PO (12:24)
[2025-05-29] MEDS: ceFAZolin 1 GM in SODIUM CHLORIDE 0.9% IV 50 ML 100 ML IVPB ×2 (14:02→22:33)
[2025-05-30 04:35] VITALS: BP 120/60; PULSE 62; RESP 14; TEMP 36.7; O2SAT 98
[2025-05-30] MEDS: ACETAMINOPHEN 325 MG TABLET 650 MG PO (04:38)
[2025-05-30 07:25] VITALS: BP 125/59; PULSE 51; RESP 18; TEMP 37.1; O2SAT 97
[2025-05-30] MEDS: metroNIDAZOLE 500 MG/ISO 100ML 500 MG/100 ML BAG 100 MG IVPB (07:32)
[2025-05-30] MEDS: CEPHALEXIN 500 MG CAPSULE PO (08:56)
[2025-05-30] MEDS: ENOXAPARIN 30 MG/0.3 ML SYRINGE SUB-Q (08:56)
[2025-05-30] MEDS: DOCUSATE SODIUM 100 MG CAPSULE PO (08:56)
== END 2025-05-30 10:10 | disposition home or self-care (01) ==
LOC: ANHSURGERY 07:31 → ANHOB2 11:02
PROVIDERS: Obstetrics & Gynecology; PCP Internal Medicine; Visit Provider Urology
PROC: (CPT 57425; principal; 2025-05-29 07:30)
PROC: 0UT94ZZ Resection of Uterus, Percutaneous Endoscopic Approach (ICD-10-PCS; CPT 57425; 2025-05-29 07:30)
DX: N81.4 Uterovaginal prolapse, unspecified (principal); N39.3 Stress incontinence (female) (male); N88.8 Other specified noninflammatory disorders of cervix uteri; N80.03 Adenomyosis of the uterus; N83.292 Other ovarian cyst, left side; N83.291 Other ovarian cyst, right side; D25.1 Intramural leiomyoma of uterus; Z87.891 Personal history of nicotine dependence
CPT/HCPCS: 57425; 58542; S2900 ×2; 36415; 85027; 88307; 99199; J0690; A9270; C1781; J1100; J1650; J1836; J1885; J2003; J2250; J2405; J2704; J3010; J3480; J7030; J7120